=== PATIENT | male | born 1935 | race Caucasian/White ===

== ENCOUNTER 2016-04-24 09:58 | Inpatient (IN) | payer OTHER ==
[~2016-04-24] VITALS: Ht 175.3 cm; Wt 73.5 kg
[~2016-04-24 09:58] MED LIST: AMLODIPINE BESYL5 MG PO; ATORVASTATIN CA20 MG PO; AZITHROMYCIN500 M1 PO; Advair HFA 230/21 IH; Ascorbic Acid,Ester- PO; Aspirin E.C. PO; BUMETANIDE1 MG PO; BUMETANIDE2 MG PO; BUMEX2 MG PO; CALCITRIOL0.25 MCG PO; CARDIZEM CD,CA120 MG PO; CARVEDILOL3.125 MG PO; CEFDINIR300 MG PO; CEPHALEXIN500 MG PO; CICLOPIROX30 GM TP; COREG3.125 M1 PO; COUMADIN,JANTOVE5 MG PO; Cardizem CD,Cartia X PO; Colace PO; Coumadin Protocol PO; Cozaar PO; DALIRESP500 MCG PO; DIOVAN80 MG PO; DOXYCYCLINE MO100 MG PO; ENALAPRIL MALEAT5 MG PO; EXTRA STRENGTH500 M1 PO; FENOFIBRATE160 M1 PO; FURO40I IM; FUROSEMIDE40 MG PO; FUROSEMIDE80 MG PO; Folvite PO; GENTAMICIN SULF30 GM TP; GENTAMICIN40 MG/1 ML IM; LANOXIN,DIGI0.125 MG PO; LANTUS (UNITS)1 UNIT IJ; LANTUS (UNITS)1 UNIT SQ; LANTUS 3 M100 UNITS1 SC; LASIX40 MG PO; LIPITOR20 MG PO; LISINOPRIL20 MG PO; LOTRIMIN AF24 GM TP; Lanoxin,Digitek PO; Lasix PO; MELATONIN5 M1 PO; MELATONIN5 M3 PO; NOVOLOG 10100 UNITS/ SC; NOVOLOG PE100 UNITS/ SC; NOVOLOG100 UNIT/1 SC; NOVOLOG100 UNIT/2 SQ; Oscal 500 w/Vitamin PO; PENTOXIFYLLINE400 MG PO; PENTOXIL400 MG PO; PROAIR HFA8.5 GM IH; PROVENTIL,2.5 MG/3 M IH; Pepcid PO; Percocet 5/325,Endoc PO; Pravachol PO; Proventil,Ventolin H IH; RANITIDINE HCL150 MG PO; RANITIDINE HCL300 M1 PO; RANITIDINE HCL300 MG PO; REFRESH TEARS15 ML BOTH EYES; ROCALTROL0.25 MCG PO; ROXICODONE5 MG PO; Rocaltrol PO; SEA SOFT45 ML BOTH NARES; SPIRIVA1 INHALATI IH; SYMBICORT60 INHALAT IH; Senokot S,Pericolace PO; TRENtal PO; TYLENOL EXTRA500 MG PO; TYLENOL REGULA325 MG PO; Theragran PO; Tricor PO; VENTOLIN HFA18 GM IH; XARELTO15 MG PO; ZANTAC300 MG PO; ZESTRIL,PRINIVI20 MG PO; Zestril,Prinivil PO; Zocor PO; oxyCODONE PO
[2016-04-24 10:40] LABS: EOSINOPHIL (%) 0.4 % (0-5); EOSINOPHIL COUNT 0.1 K/uL (0-0.3); IMMATURE GRANULOCYTE (%) 1.6 % (0.0-0.7); IMMATURE GRANULOCYTE COUNT 2.5 K/uL; LYMPHOCYTE COUNT 2.5 K/uL (1.0-2.8); MCV 84.9 FL (86-99); MEAN PLAT.VOLUME 10.4 uM^3 (9.0-12.4); MONOCYTE (%) 7.2 % (3-12); MONOCYTE COUNT 1.1 K/uL (0-0.8); NEUTROPHIL (%) 74.1 % (45-76); NEUTROPHIL COUNT 11.3 K/uL (1.8-6.4); PLATELET COUNT 176 K/uL (156-360); RBC DIS.WIDTH-CV 14.9 % (11.8-14.6); RBC DIS.WIDTH-SD 45.2 % (39-53); RED BLOOD COUNT 4.71 M/uL (4.00-5.50); WHITE BLOOD COUNT 15.2 K/uL (4.1-10.2)
[2016-04-24 10:48] LABS: CHLORIDE 100 mEq/L (99-109); INTER. NORMALIZED RATIO 1.3; POTASSIUM 4.9 mEq/L (3.7-5.4); PROTHROMBIN TIME 13.3 (9.2-11.2); SODIUM 136 mEq/L (136-147)
[2016-04-24 10:50] LABS: GLUCOSE 327 mg/dL (70-99)
[2016-04-24 10:51] LABS: ANION GAP 14 MEQ/L (2-14)
[2016-04-24 10:54] LABS: GFR ESTIMATE (CALCULATED) 22 mL/min/
[2016-04-24 10:55] LABS: UREA NITROGEN (BUN) 53 mg/dL (9-23)
[2016-04-24] MEDS ORDERED: BUMEX1 MG PO (12:06)
[2016-04-24] MEDS ORDERED: BUMEX2 MG PO (12:07)
[2016-04-24] MEDS ORDERED: ENALAPRIL MALEAT5 MG PO (12:08)
[2016-04-24] MEDS ORDERED: BACTRIM,SEPT1 TABLET PO (12:13)
[2016-04-24] MEDS ORDERED: MUCINEX600 MG PO (12:14)
[2016-04-24] MEDS ORDERED: NOVOLOG PE100 UNITS/ SC (12:15)
[2016-04-24 13:30] VITALS: BP 173/71
[2016-04-24 17:03] VITALS: BP 154/67
[2016-04-24 18:11] LABS: POINT-OF-CARE METER ID UU14149397
[2016-04-24 20:00] VITALS: BP 137/64
[2016-04-24 22:14] LABS: POINT-OF-CARE METER ID UU14149397
[2016-04-25 00:12] VITALS: BP 124/60
[2016-04-25 05:05] VITALS: BP 119/58
[2016-04-25 06:53] LABS: POINT-OF-CARE METER ID UU13113717
[2016-04-25 08:09] VITALS: BP 112/56
[2016-04-25 09:07] LABS: ANION GAP 11 MEQ/L (2-14); CHLORIDE 101 MEQ/L (99-109); GFR ESTIMATE (CALCULATED) 24 mL/min/; GLUCOSE 198 mg/dL (70-99); POTASSIUM 5.4 MEQ/L (3.7-5.4); SAMPLE HEMOLYSIS CHECK 0; SAMPLE ICTERIC CHECK 0; SAMPLE LIPEMIA CHECK 0; SODIUM 134 MEQ/L (136-147); UREA NITROGEN (BUN) 54 mg/dL (9-23)
[2016-04-25 09:15] LABS: TROP-I INTERPRETATION NEGATIVE; TROPONIN-I 0.04 ng/mL (0.0-0.30)
[2016-04-25 09:25] LABS: INTER. NORMALIZED RATIO 1.2
[2016-04-25 11:11] VITALS: BP 126/58
[2016-04-25 11:26] LABS: POINT-OF-CARE METER ID UU14149397
[2016-04-25 13:54] LABS: POINT-OF-CARE METER ID UU13113675
[2016-04-25 15:56] VITALS: BP 126/59
[2016-04-25 17:04] LABS: TROP-I INTERPRETATION NEGATIVE; TROPONIN-I 0.03 ng/mL (0.0-0.30)
[2016-04-25 19:51] VITALS: BP 137/61
[2016-04-26 00:07] VITALS: BP 119/59
[2016-04-26 00:10] LABS: POINT-OF-CARE METER ID UU14149397
[2016-04-26 04:42] VITALS: BP 129/61
[2016-04-26 05:46] LABS: HEMATOCRIT 33.5 % (38.0-50.0); MCV 87.7 FL (86-99)
[2016-04-26 06:05] LABS: ANION GAP 9 MEQ/L (2-14); CHLORIDE 105 MEQ/L (99-109); GFR ESTIMATE (CALCULATED) 29 mL/min/; GLUCOSE 237 mg/dL (70-99); POTASSIUM 5.1 MEQ/L (3.7-5.4); SAMPLE HEMOLYSIS CHECK 0; SAMPLE ICTERIC CHECK 0; SAMPLE LIPEMIA CHECK 0; SODIUM 136 MEQ/L (136-147); UREA NITROGEN (BUN) 57 mg/dL (9-23)
[2016-04-26 08:36] VITALS: BP 123/58
[2016-04-26 11:07] VITALS: BP 144/63
[2016-04-26 12:11] LABS: POINT-OF-CARE METER ID UU14149397
[2016-04-26 12:51] LABS: HEMATOCRIT 30.9 % (38.0-50.0); MCV 86.6 FL (86-99)
[2016-04-26 13:16] LABS: TROP-I INTERPRETATION NEGATIVE; TROPONIN-I 0.05 ng/mL (0.0-0.30)
[2016-04-26 16:22] VITALS: BP 156/66
[2016-04-26 17:10] LABS: POINT-OF-CARE METER ID UU14149397
[2016-04-26 19:38] VITALS: BP 151/68
[2016-04-27 00:12] VITALS: BP 144/65
[2016-04-27 03:39] VITALS: BP 177/72
[2016-04-27 04:56] LABS: HEMATOCRIT 32.6 % (38.0-50.0); MCH 27.9 PG (29.0-34.0); MCHC 32.5 G/DL (30.0-36.0); MCV 85.8 FL (86-99); MEAN PLAT.VOLUME 10.4 uM^3 (9.0-12.4); PLATELET COUNT 196 K/uL (156-360); RBC DIS.WIDTH-CV 15.3 % (11.8-14.6); RBC DIS.WIDTH-SD 47.2 % (39-53); WHITE BLOOD COUNT 17.8 K/uL (4.1-10.2)
[2016-04-27 05:13] LABS: CHLORIDE 109 mEq/L (99-109); POTASSIUM 5.2 mEq/L (3.7-5.4); SODIUM 140 mEq/L (136-147)
[2016-04-27 05:15] LABS: GLUCOSE 195 mg/dL (70-99)
[2016-04-27 05:16] LABS: ANION GAP 8 MEQ/L (2-14)
[2016-04-27 05:18] LABS: GFR ESTIMATE (CALCULATED) 31 mL/min/
[2016-04-27 05:20] LABS: UREA NITROGEN (BUN) 64 mg/dL (9-23)
[2016-04-27 05:22] LABS: POINT-OF-CARE METER ID UU13113717
[2016-04-27 08:30] VITALS: BP 173/72
[2016-04-27 12:37] VITALS: BP 153/69
[2016-04-27 12:55] LABS: POINT-OF-CARE METER ID UU14149397
[2016-04-27 17:22] LABS: POINT-OF-CARE METER ID UU13113717
[2016-04-27 20:28] VITALS: BP 157/68
[2016-04-28] VITALS: BP 158/66
[2016-04-28 00:05] LABS: POINT-OF-CARE METER ID UU14149397
[2016-04-28 01:38] LABS: METH RESISTANT S AUREUS PCR POSITIVE (NEGATIVE)
[2016-04-28 01:39] LABS: PROBE CHECK PASS
[2016-04-28 05:19] LABS: HEMATOCRIT 32.8 % (38.0-50.0); MCH 28.4 PG (29.0-34.0); MCV 88.6 FL (86-99); MEAN PLAT.VOLUME 10.6 uM^3 (9.0-12.4); PLATELET COUNT 204 K/uL (156-360); RBC DIS.WIDTH-CV 15.5 % (11.8-14.6); WHITE BLOOD COUNT 14.1 K/uL (4.1-10.2)
[2016-04-28 05:44] LABS: ANION GAP 9 MEQ/L (2-14); CHLORIDE 107 MEQ/L (99-109); GFR ESTIMATE (CALCULATED) 36 mL/min/; GLUCOSE 243 mg/dL (70-99); POTASSIUM 4.8 MEQ/L (3.7-5.4); SAMPLE HEMOLYSIS CHECK 0; SAMPLE ICTERIC CHECK 0; SAMPLE LIPEMIA CHECK 0; SODIUM 142 MEQ/L (136-147); UREA NITROGEN (BUN) 67 mg/dL (9-23)
[2016-04-28 07:39] VITALS: BP 148/82
[2016-04-28 09:08] LABS: TROP-I INTERPRETATION NEGATIVE; TROPONIN-I 0.05 ng/mL (0.0-0.30)
[2016-04-28 12:36] LABS: POINT-OF-CARE METER ID UU13113717
[2016-04-28 15:17] LABS: ADD MIUA? NO; BILIRUBIN NEGATIVE; BLOOD NEGATIVE; COLOR YELLOW ((YELLOW)); GLUCOSE (STRIP) NEGATIVE; KETONES NEGATIVE; LEUKOCYTES NEGATIVE; NITRITE NEGATIVE; PH, URINE 5.5 (5-8); PROTEIN (STRIP) 30; UCUL ADDED? NO; UROBILINOGEN 0.2 MG/DL (0.2-1.0)
[2016-04-28 16:06] VITALS: BP 148/84
[2016-04-28 19:39] VITALS: BP 133/56
[2016-04-28 23:26] VITALS: BP 125/58
[2016-04-29 06:03] LABS: HEMATOCRIT 32.9 % (38.0-50.0); MCH 27.6 PG (29.0-34.0); MCHC 31.6 G/DL (30.0-36.0); MCV 87.3 FL (86-99); MEAN PLAT.VOLUME 10.2 uM^3 (9.0-12.4); PLATELET COUNT 221 K/uL (156-360); RBC DIS.WIDTH-CV 15.4 % (11.8-14.6); RBC DIS.WIDTH-SD 49.2 % (39-53); RED BLOOD COUNT 3.77 M/uL (4.00-5.50); WHITE BLOOD COUNT 15.1 K/uL (4.1-10.2)
[2016-04-29 06:31] LABS: ANION GAP 7 MEQ/L (2-14); CHLORIDE 110 MEQ/L (99-109); GFR ESTIMATE (CALCULATED) 39 mL/min/; SAMPLE HEMOLYSIS CHECK 0; SAMPLE ICTERIC CHECK 0; SAMPLE LIPEMIA CHECK 0; SODIUM 144 MEQ/L (136-147); UREA NITROGEN (BUN) 70 mg/dL (9-23)
[2016-04-29 06:33] LABS: GLUCOSE 83 mg/dL (70-99)
[2016-04-29 07:34] VITALS: BP 128/60
[2016-04-29 17:20] VITALS: BP 126/55
[2016-04-29 20:45] VITALS: BP 120/58
[2016-04-30 00:32] LABS: POINT-OF-CARE METER ID UU13113717
[2016-04-30 00:35] VITALS: BP 112/56
[2016-04-30 03:20] VITALS: BP 112/60
[2016-04-30 08:01] LABS: POINT-OF-CARE METER ID UU13113717
[2016-04-30 08:10] VITALS: BP 120/56
[2016-04-30 11:39] LABS: POINT-OF-CARE METER ID UU13113717
[2016-04-30 12:22] VITALS: BP 98/42
[2016-04-30] MEDS ORDERED: VITAMIN D-32000 UNI2 PO (12:59)
[2016-04-30] MEDS ORDERED: SPIRIVA RESPIMAT4 GM IH (12:59)
[2016-04-30] MEDS ORDERED: THERAGRAN1 TABLET PO (12:59)
[2016-04-30] MEDS ORDERED: CARVEDILOL6.25 MG PO (12:59)
[2016-04-30] MEDS ORDERED: ROXICODONE5 MG PO (12:59)
== END 2016-04-30 15:25 | DRG 536 ==
LOC: EME → EDBD 09:58 → EDOF 12:28 → 3EAST 12:28 → EDOF 12:58 → 3EAST 14:22
PROVIDERS: Emergency Medicine; Hospitalist; Internal Medicine; Internal Medicine Cardiovascular Disease; Orthopaedic Surgery Sports Medicine
PROC: 0SS934Z Reposition Right Hip Joint with Internal Fixation Device, Percutaneous Approach (ICD-10-PCS; principal; 2016-04-25)
DX: S72.141A Displaced intertrochanteric fracture of right femur, initial encounter for closed fracture (principal); I48.2 Chronic atrial fibrillation; I50.22 Chronic systolic (congestive) heart failure; N18.3 Chronic kidney disease, stage 3 (moderate); I25.10 Atherosclerotic heart disease of native coronary artery without angina pectoris; Z95.5 Presence of coronary angioplasty implant and graft; J44.9 Chronic obstructive pulmonary disease, unspecified; E11.22 Type 2 diabetes mellitus with diabetic chronic kidney disease; Z95.0 Presence of cardiac pacemaker; W01.0XXA Fall on same level from slipping, tripping and stumbling without subsequent striking against object, initial encounter; Y92.121 Bathroom in nursing home as the place of occurrence of the external cause; Z89.421 Acquired absence of other right toe(s); N17.9 Acute kidney failure, unspecified; E86.0 Dehydration; K21.9 Gastro-esophageal reflux disease without esophagitis; I13.0 Hypertensive heart and chronic kidney disease with heart failure and stage 1 through stage 4 chronic kidney disease, or unspecified chronic kidney disease; R13.10 Dysphagia, unspecified; R33.9 Retention of urine, unspecified; K59.03 Drug induced constipation; T40.2X5A Adverse effect of other opioids, initial encounter; I34.0 Nonrheumatic mitral (valve) insufficiency; E78.5 Hyperlipidemia, unspecified
CPT/HCPCS: 71010; 73502; 74000; 74230; 76000; 80048; 81003; 82306; 82948; 84484; 85014; 85018; 85025; 85027; 85610; 86850; 86900; 86901; 87641; 92526 GN; 92610 GN; 92611 GN; 93005; 93306; 94640; 94640 76; 94667; 94668; 97530 GP; 99202; 99281; 99285; C1713; G0103; J0690; J1644; J1815; J2405; J2550; J3010; J7030

== ENCOUNTER 2016-05-03 18:05 | Inpatient (IN) | payer OTHER ==
[~2016-05-03] VITALS: Ht 175.3 cm; Wt 71.8 kg
[~2016-05-03 18:05] MED LIST changes: +BACTRIM,SEPT1 TABLET PO; +BUMEX1 MG PO; +CARVEDILOL6.25 MG PO; +MUCINEX600 MG PO; +SPIRIVA RESPIMAT4 GM IH; +THERAGRAN1 TABLET PO; +VITAMIN D-32000 UNI2 PO
[2016-05-03 19:46] LABS: ADD MIUA? NO; BILIRUBIN NEGATIVE; BLOOD NEGATIVE; COLOR YELLOW ((YELLOW)); GLUCOSE (STRIP) NEGATIVE; KETONES 5; LEUKOCYTES NEGATIVE; NITRITE NEGATIVE; PROTEIN (STRIP) NEGATIVE; SPECIFIC GRAVITY 1.014 (1.000-1.030); UCUL ADDED? NO; UROBILINOGEN 0.2 MG/DL (0.2-1.0)
[2016-05-03 20:14] LABS: EOSINOPHIL (%) 1.4 % (0-5); EOSINOPHIL COUNT 0.2 K/uL (0-0.3); HEMATOCRIT 32.6 % (38.0-50.0); IMMATURE GRANULOCYTE (%) 1.4 % (0.0-0.7); IMMATURE GRANULOCYTE COUNT 2.3 K/uL; LYMPHOCYTE COUNT 4.8 K/uL (1.0-2.8); MCH 27.6 PG (29.0-34.0); MCHC 31.3 G/DL (30.0-36.0); MCV 88.1 FL (86-99); MONOCYTE (%) 9.2 % (3-12); MONOCYTE COUNT 1.5 K/uL (0-0.8); NEUTROPHIL (%) 57.6 % (45-76); NEUTROPHIL COUNT 9.2 K/uL (1.8-6.4); RBC DIS.WIDTH-CV 15.5 % (11.8-14.6)
[2016-05-03 20:16] LABS: MEAN PLAT.VOLUME 9.4 uM^3 (9.0-12.4)
[2016-05-03 20:18] LABS: PLATELET COUNT 316 K/uL (156-360)
[2016-05-03 20:22] LABS: CHLORIDE 109 mEq/L (99-109); POTASSIUM 4.2 mEq/L (3.7-5.4); SODIUM 141 mEq/L (136-147)
[2016-05-03 20:25] LABS: GLUCOSE 50 mg/dL (70-99)
[2016-05-03 20:26] LABS: ANION GAP 8 MEQ/L (2-14)
[2016-05-03 20:27] LABS: TOTAL BILIRUBIN 1.2 mg/dL (0.0-1.0)
[2016-05-03 20:28] LABS: ALKALINE PHOSPHATASE 62 IU/L (3-129)
[2016-05-03 20:29] LABS: GFR ESTIMATE (CALCULATED) 27 mL/min/
[2016-05-03 20:30] LABS: UREA NITROGEN (BUN) 96 mg/dL (9-23)
[2016-05-03 20:32] LABS: LIPASE 56 U/L (1.0-51.0)
[2016-05-03 20:35] LABS: TROP-I INTERPRETATION NEGATIVE; TROPONIN-I 0.04 ng/mL (0.0-0.30)
[2016-05-03 22:50] LABS: INTER. NORMALIZED RATIO 1.5; PROTHROMBIN TIME 15.3 (9.2-11.2); PTT 34.3 (25-32)
[2016-05-04] MEDS ORDERED: ATORVASTATIN CA20 MG PO (01:26)
[2016-05-04] MEDS ORDERED: BUMETANIDE2 MG PO (01:28)
[2016-05-04] MEDS ORDERED: BUMEX2 MG PO (01:29)
[2016-05-04] MEDS ORDERED: VITAMIN D-32000 UNI2 PO (01:29)
[2016-05-04] MEDS ORDERED: DALIRESP500 MCG PO (01:30)
[2016-05-04] MEDS ORDERED: LANTUS 3 M100 UNITS1 SC (01:31)
[2016-05-04] MEDS ORDERED: ENALAPRIL MALEAT5 MG PO (01:31)
[2016-05-04] MEDS ORDERED: MYVITALIFE1 EACH PO (01:32)
[2016-05-04] MEDS ORDERED: RANITIDINE HCL150 MG PO (01:32)
[2016-05-04] MEDS ORDERED: SPIRIVA1 INHALATI IH (01:33)
[2016-05-04] MEDS ORDERED: REFRESH TEARS15 ML BOTH EYES (01:33)
[2016-05-04] MEDS ORDERED: PROVENTIL,2.5 MG/3 M IH (01:34)
[2016-05-04] MEDS ORDERED: XARELTO15 MG PO (01:34)
[2016-05-04] MEDS ORDERED: COREG6.25 M1 PO (01:35)
[2016-05-04] MEDS ORDERED: AYR50 ML BOTH NARES (01:36)
[2016-05-04] MEDS ORDERED: TYLENOL REGULA325 MG PO ×2 (01:37→01:41)
[2016-05-04] MEDS ORDERED: SYMBICORT60 INHALAT IH (01:37)
[2016-05-04] MEDS ORDERED: NOVOLOG PE100 UNITS/ SC (01:38)
[2016-05-04] MEDS ORDERED: PROAIR HFA8.5 GM IH (01:40)
[2016-05-04] MEDS ORDERED: ROXICODONE5 MG PO (01:40)
[2016-05-04 06:26] LABS: POINT-OF-CARE METER ID UU13113702
[2016-05-04 07:15] LABS: POINT-OF-CARE METER ID UU14100415
[2016-05-04 11:13] LABS: POINT-OF-CARE METER ID UU14100415
[2016-05-04 16:11] LABS: POINT-OF-CARE METER ID UU14100415
[2016-05-04 16:38] LABS: HEMATOCRIT 31.3 % (38.0-50.0); MCV 88.9 FL (86-99)
[2016-05-04 20:10] VITALS: BP 109/58
[2016-05-04 22:56] LABS: POINT-OF-CARE METER ID UU14188577
[2016-05-04 23:50] VITALS: BP 123/59
[2016-05-05 04:09] LABS: METH RESISTANT S AUREUS PCR POSITIVE (NEGATIVE)
[2016-05-05 04:12] VITALS: BP 139/62
[2016-05-05 04:12] LABS: PROBE CHECK PASS
[2016-05-05 07:39] VITALS: BP 113/72
[2016-05-05 07:54] LABS: INTER. NORMALIZED RATIO 1.1; PROTHROMBIN TIME 11.6 (9.2-11.2); PTT 27.6 (25-32)
[2016-05-05 08:17] LABS: HEMATOCRIT 29.2 % (38.0-50.0); MCH 28.4 PG (29.0-34.0); MCHC 31.8 G/DL (30.0-36.0); MEAN PLAT.VOLUME 9.5 uM^3 (9.0-12.4); PLATELET COUNT 228 K/uL (156-360); RBC DIS.WIDTH-CV 16.4 % (11.8-14.6); RBC DIS.WIDTH-SD 51.8 % (39-53); RED BLOOD COUNT 3.28 M/uL (4.00-5.50)
[2016-05-05 08:23] LABS: WHITE BLOOD COUNT 10.6 K/uL (4.1-10.2)
[2016-05-05 14:10] LABS: POINT-OF-CARE METER ID UU13113819
[2016-05-05 15:48] VITALS: BP 118/55
[2016-05-05 21:02] VITALS: BP 128/62
[2016-05-05 23:29] VITALS: BP 150/67
[2016-05-05 23:48] LABS: POINT-OF-CARE METER ID UU14188577
[2016-05-06 04:38] VITALS: BP 154/70
[2016-05-06 07:41] VITALS: BP 122/58
[2016-05-06] MEDS ORDERED: PANTOPRAZOLE SO40 MG PO (08:51)
[2016-05-06] MEDS ORDERED: METOCLOPRAMIDE H5 MG PO (08:52)
[2016-05-06] MEDS ORDERED: ROXICODONE5 MG PO (08:56)
== END 2016-05-06 15:02 | DRG 378 ==
LOC: EME 18:05 → EDOF 05-04 02:10 → 3EAST 05-04 02:10
PROVIDERS: Emergency Medicine; Family Medicine; Hospitalist; Internal Medicine; Internal Medicine Gastroenterology
PROC: 0DJ08ZZ Inspection of Upper Intestinal Tract, Via Natural or Artificial Opening Endoscopic (ICD-10-PCS; principal; 2016-05-05)
DX: K92.2 Gastrointestinal hemorrhage, unspecified (principal); K22.10 Ulcer of esophagus without bleeding; N17.9 Acute kidney failure, unspecified; I50.22 Chronic systolic (congestive) heart failure; L97.829 Non-pressure chronic ulcer of other part of left lower leg with unspecified severity; L97.819 Non-pressure chronic ulcer of other part of right lower leg with unspecified severity; E11.22 Type 2 diabetes mellitus with diabetic chronic kidney disease; K44.9 Diaphragmatic hernia without obstruction or gangrene; D53.9 Nutritional anemia, unspecified; I48.2 Chronic atrial fibrillation; I25.10 Atherosclerotic heart disease of native coronary artery without angina pectoris; S72.141D Displaced intertrochanteric fracture of right femur, subsequent encounter for closed fracture with routine healing; K92.0 Hematemesis; I12.9 Hypertensive chronic kidney disease with stage 1 through stage 4 chronic kidney disease, or unspecified chronic kidney disease; N18.3 Chronic kidney disease, stage 3 (moderate); E78.5 Hyperlipidemia, unspecified; J44.9 Chronic obstructive pulmonary disease, unspecified; I08.1 Rheumatic disorders of both mitral and tricuspid valves; Z95.0 Presence of cardiac pacemaker; Z95.1 Presence of aortocoronary bypass graft
CPT/HCPCS: 73502; 74176; 80053; 81003; 82948; 83690; 84484; 85014; 85018; 85025; 85027; 85610; 85730; 86850; 86900; 86901; 87086; 87641; 93005; 94640; 94640 76; 94760; 99202; 99281; 99285; C9113; J1815; J2270; J2405; J7030